=== PATIENT | female | born 1950 | race Caucasian/White ===

== ENCOUNTER 2018-01-24 20:31 | Emergency (ER) | payer MEDICARE ==
[~2018-01-24] VITALS: Ht 160 cm; Wt 74.8 kg
[~2018-01-24 20:31] MED LIST: ASPI325 PO; AZELASTINE HCL6 ML; Anaspaz0.125 MG PO; B-123000 MCG SL; BACL10 PO; CALCAVITDA PO; CENTRUM SILVER1 EAC3 PO; DULO60 PO; FISH1000 PO; HYDACE10B PO; LEVSOD50 PO; METO50 PO; Norco 7.5-3251 EACH PO; Omeprazole20 M1 PO; SERT50 PO; SUMA25 PO; Tambocor100 MG PO; XARELTO20 MG PO; ZYRTEC10 M2 PO; [UNRECOGNIZED DRUG - MIXTURE]
[2018-01-24] MEDS ORDERED: BACL10 PO (22:07)
[2018-01-24] MEDS ORDERED: AMIT25 PO (22:07)
[2018-01-24] MEDS ORDERED: DICL75ER PO (22:08)
[2018-01-24] MEDS ORDERED: CETI5 PO (22:08)
[2018-01-24] MEDS ORDERED: OXYC5 PO (22:09)
[2018-01-24] MEDS ORDERED: WARF5 PO (22:10)
== END 2018-01-24 23:00 | disposition home or self-care (01) ==
LOC: ER 20:31
DX: S61.411A Laceration without foreign body of right hand, initial encounter (principal); W11.XXXA Fall on and from ladder, initial encounter; Z88.1 Allergy status to other antibiotic agents; Z88.8 Allergy status to other drugs, medicaments and biological substances; Z88.0 Allergy status to penicillin; Z79.899 Other long term (current) drug therapy; Z79.01 Long term (current) use of anticoagulants; I48.91 Unspecified atrial fibrillation; Z87.891 Personal history of nicotine dependence
CPT/HCPCS: 90471; 90714; 99282

== ENCOUNTER → 2019-03-06 | Outpatient (CLI) | payer MEDICARE ==
[~2019-03-06] MED LIST changes: +AMIT25 PO; +CALCIUM PO; +CETI5 PO; +DICL75ER PO; +LOSARTAN-HCTZ1 EACH PO; +OXYC5 PO; +WARF5 PO
== END | disposition home or self-care (01) ==
LOC: LAB SHORT 18:04 → LAB EV 18:04
DX: I48.91 Unspecified atrial fibrillation (principal); I48.92 Unspecified atrial flutter
CPT/HCPCS: 36416; 85610

== ENCOUNTER 2020-05-17 10:47 | Day surgery (SDC) | payer MEDICARE ==
[~2020-05-17] VITALS: Ht 157.5 cm; Wt 88.0 kg
[~2020-05-17 10:47] MED LIST changes: -B-123000 MCG SL; +[UNRECOGNIZED DRUG - CODE] SL
[2020-05-17] MEDS ORDERED: Bumetanide0.5 MG PO (12:00)
--- NOTE | 2020-05-17 15:39 | NUR ---
PT TO RECOVERY ROOM POST PACER CHANGE OUT, EATING LUNCH NOW, SITE STABLE W DRESSING INTACT, VSS,
--- NOTE | 2020-05-17 16:04 | NUR ---
PT BACK TO RECOVERY ROOM AT 1500 POST PACER CHANGE OUT, AT LUNCH, AMB TO BTR OK, DRESSED AND CALLING SON FOR DIETETIC TECHNICIAN IN ABOUT 20 MIN.
--- NOTE | 2020-05-17 16:18 | NUR ---
PT DRESSED SELF WITHOUT ANY ISSUES, SITE UNCHANGED; IV REMOVED-CANNULA INTACT. PT RECEIVED DISCHARGE INSTRUCTIONS, MED LIST AND AFTER CARE INSTRUCTIONS; VERBALIZED GOOD UNDERSTANDING. PT LEFT FACILITY VIA W/C, CONDITIION STABLE.
== END 2020-05-17 16:18 | disposition home or self-care (01) ==
LOC: MHTC 10:47
DX: Z45.010 Encounter for checking and testing of cardiac pacemaker pulse generator [battery] (principal); I44.2 Atrioventricular block, complete; I12.9 Hypertensive chronic kidney disease with stage 1 through stage 4 chronic kidney disease, or unspecified chronic kidney disease; N18.9 Chronic kidney disease, unspecified; E78.5 Hyperlipidemia, unspecified; E03.9 Hypothyroidism, unspecified; Z87.891 Personal history of nicotine dependence; Z79.01 Long term (current) use of anticoagulants; Z79.899 Other long term (current) drug therapy; Z88.0 Allergy status to penicillin; Z88.1 Allergy status to other antibiotic agents; Z88.2 Allergy status to sulfonamides; Z98.84 Bariatric surgery status
CPT/HCPCS: 33222; 33228; 99152; 99153; C1785; J1644; J2250; J3010; J3370; J7040; J7042

== ENCOUNTER 2020-09-06 14:11 | Emergency (ER) | payer MEDICARE, SELFPAY ==
[~2020-09-06] VITALS: Ht 157.5 cm; Wt 86.2 kg
[~2020-09-06 14:11] MED LIST changes: +Bumetanide0.5 MG PO
== END 2020-09-06 16:26 | disposition home or self-care (01) ==
LOC: ER 14:11
DX: G56.22 Lesion of ulnar nerve, left upper limb (principal); I48.91 Unspecified atrial fibrillation; Z87.891 Personal history of nicotine dependence
CPT/HCPCS: 96374; 99284-25

== ENCOUNTER → 2020-12-28 | Outpatient (CLI) | payer MEDICARE, SELFPAY ==
[~2020-12-28] MED LIST changes: +ASCO500 PO; +FLUT.05NI; +HYOS.125 SL; +Percocet 5-3251 EACH PO
== END | disposition home or self-care (01) ==
LOC: LAB 09:19 → LAB SHORT 09:19
DX: D48.7 Neoplasm of uncertain behavior of other specified sites (principal)
CPT/HCPCS: 88305

== ENCOUNTER 2021-01-09 19:14 | Emergency (ER) | payer MEDICARE, SELFPAY ==
[~2021-01-09] VITALS: Ht 160 cm; Wt 80.3 kg
[~2021-01-09 19:14] MED LIST changes: -ASCO500 PO; -FLUT.05NI; -HYOS.125 SL; -Percocet 5-3251 EACH PO
[2021-01-09] MEDS ORDERED: ASCO500 PO (20:31)
[2021-01-09] MEDS ORDERED: CETI5 PO (20:36)
[2021-01-09] MEDS ORDERED: FLUT.05NI (20:37)
[2021-01-09] MEDS ORDERED: HYOS.125 SL (20:38)
[2021-01-09] MEDS ORDERED: Percocet 5-3251 EACH PO (20:38)
== END 2021-01-09 20:40 | disposition home or self-care (01) ==
LOC: ER 19:14
DX: M25.512 Pain in left shoulder (principal); Z87.891 Personal history of nicotine dependence; Z79.899 Other long term (current) drug therapy; Z88.1 Allergy status to other antibiotic agents; Z88.0 Allergy status to penicillin; Z88.2 Allergy status to sulfonamides; Z79.01 Long term (current) use of anticoagulants
CPT/HCPCS: 73030; 99283-25

== ENCOUNTER 2021-09-13 05:58 | Day surgery (SDC) | payer MEDICARE ==
[~2021-09-13] VITALS: Ht 157.5 cm; Wt 85.6 kg
[~2021-09-13 05:58] MED LIST changes: +ASCO500 PO; +FLUT.05NI; +HYOS.125 SL; +Percocet 5-3251 EACH PO
[2021-09-13] MEDS ORDERED: Norco 5-325 Ta1 EACH PO (06:32)
--- NOTE | 2021-09-13 06:46 | NUR ---
PT ADMITTED TO [facility]. AGREES WITH PLANNED SURGERY. LUNG SOUNDS CLEAR.
[2021-09-13] MEDS ORDERED: Percocet 5-3251 EACH PO (12:03)
--- NOTE | 2021-09-13 13:41 | NUR ---
DISCHARGE SUMMARY PT A&OX4, VSS, PAIN MANAGED ON 5 MG OXY, TADEO PO, VOIDING, AMBULATING SBA FOR SAFETY-PT INDEPENDENT WITH FWW IN ROOM/HALLWAY, SAT UP TO CHAIR FOR LUNCH. LEFT FLOOR VIA WC WITH RN TO GO HOME WITH SON WITH ALL PERSONAL POSSESSIONS INCLUDING DC PACKET. DC INSTRUCTIONS PROVIDED, PT REP UNDERSTANDING THOSE INSTRUCTIONS INCLUDING FU APPT, THERAPY APPTS, PAIN MEDS. IV DC'D.
== END 2021-09-13 13:37 | disposition home or self-care (01) ==
LOC: ORSCMMR 05:58 → SURS 09:31 → ORSCMMR 13:37 → ORD 09-16 07:30
PROVIDERS: Orthopaedic Surgery
PROC: 0QRF0JZ Replacement of Left Patella with Synthetic Substitute, Open Approach (ICD-10-PCS; principal; 2021-09-13 07:30)
DX: M17.12 Unilateral primary osteoarthritis, left knee (principal); I10 Essential (primary) hypertension; N18.9 Chronic kidney disease, unspecified; Z79.899 Other long term (current) drug therapy; E66.9 Obesity, unspecified; Z68.34 Body mass index [BMI] 34.0-34.9, adult
CPT/HCPCS: 73560-LT; A9270; J0171; J0690; J0735; J1100; J1885; J2250; J2370; J2405; J2704; J2795; J3010; J7030; J7120

== ENCOUNTER 2021-10-11 15:30 | Observation (INO) | payer OTHER, MEDICARE ==
[~2021-10-11] VITALS: Ht 157.5 cm; Wt 83.9 kg
[~2021-10-11 15:30] MED LIST changes: +Norco 5-325 Ta1 EACH PO
[2021-10-11 18:34] LABS: BASOPHILS ABSOLUTE AUTO 0.09 K/mm3 (0.00-0.23); BASOPHILS PERCENT AUTO 2 % (0-2); EOSINOPHILS ABSOLUTE AUTO 0.52 K/mm3 (0.00-0.68); EOSINOPHILS PERCENT AUTO 9 % (0-6); Hematocrit 34.6 % (33.0-51.0); Hemoglobin 11.8 g/dL (11.5-16.0); IMMATURE GRAN ABSOLUTE AUTO 0.01 K/mm3 (0.00-0.10); IMMATURE GRAN PERCENT AUTO 0 % (0-1); LYMPHOCYTES PERCENT AUTO 23 % (21-46); MONOCYTES ABSOLUTE AUTO 0.45 K/mm3 (0.16-1.47); MONOCYTES PERCENT AUTO 8 % (4-13); Mean Corpuscular HGB 32.2 pg (26.0-34.0); Mean Corpuscular HGB Conc 34.1 g/dL (31.5-36.5); Mean Corpuscular Volume 95 fL (80-100); Mean Platelet Volume 9.9 fL (9.1-12.4); NEUTROPHILS ABSOLUTE AUTO 3.25 K/mm3 (1.96-9.15); NEUTROPHILS PERCENT AUTO 58 % (41-73); Platelet Count 227 K/mm3 (150-400); RDW Coefficient Variation 13.7 % (11.7-14.2); RDW Standard Deviation 47.7 fL (35.1-46.3); Red Blood Cell Count 3.66 M/mm3 (3.80-5.20); White Blood Cell Count 5.62 K/mm3 (4.00-11.30)
[2021-10-11 18:57] LABS: Albumin, Blood 3.9 g/dL (3.4-5.0); Albumin/Globulin Ratio 1.4 (0.8-1.8); Bun/Creatinine Ratio 21.1 (12.0-20.0); Calcium, Blood 8.7 mg/dL (8.5-10.1); Creatinine, Blood 0.95 mg/dL (0.40-1.00); Globulin, Blood 2.7 g/dL (2.2-4.0); Potassium, Blood 4.8 mmol/L (3.5-5.5); Total Protein, Blood 6.6 g/dL (6.4-8.2)
[2021-10-12 05:02] LABS: BASOPHILS ABSOLUTE AUTO 0.03 K/mm3 (0.00-0.23); BASOPHILS PERCENT AUTO 1 % (0-2); EOSINOPHILS ABSOLUTE AUTO 0.01 K/mm3 (0.00-0.68); EOSINOPHILS PERCENT AUTO 0 % (0-6); Hematocrit 34.5 % (33.0-51.0); Hemoglobin 11.1 g/dL (11.5-16.0); IMMATURE GRAN ABSOLUTE AUTO 0.02 K/mm3 (0.00-0.10); IMMATURE GRAN PERCENT AUTO 0 % (0-1); LYMPHOCYTES PERCENT AUTO 9 % (21-46); MONOCYTES PERCENT AUTO 2 % (4-13); Mean Corpuscular HGB Conc 32.2 g/dL (31.5-36.5); Mean Corpuscular Volume 96 fL (80-100); Mean Platelet Volume 9.6 fL (9.1-12.4); NEUTROPHILS PERCENT AUTO 88 % (41-73); Platelet Count 204 K/mm3 (150-400); RDW Coefficient Variation 13.6 % (11.7-14.2); RDW Standard Deviation 49.1 fL (35.1-46.3); Red Blood Cell Count 3.58 M/mm3 (3.80-5.20); White Blood Cell Count 5.36 K/mm3 (4.00-11.30)
[2021-10-12 05:14] LABS: International Normalized Ratio 2.39; Prothrombin Time Results 23.7 Sec (9.7-11.5)
[2021-10-12 05:33] LABS: Alanine Aminotransfer (ALT/SGP 28 U/L (12-78); Albumin, Blood 3.5 g/dL (3.4-5.0); Albumin/Globulin Ratio 1.3 (0.8-1.8); Alk Phos 50 U/L (50-136); Anion Gap 7 mmol/L (6-16); Aspartate Aminotrans (AST/SGOT 25 U/L (12-37); Bilirubin, Total 0.4 mg/dL (0.1-1.0); Blood Urea Nitrogen 20 mg/dL (8-24); Bun/Creatinine Ratio 22.6 (12.0-20.0); CO2, Blood 26 mmol/L (21-32); Calcium, Blood 8.4 mg/dL (8.5-10.1); Chloride, Blood 106 mmol/L (98-108); Creatinine, Blood 0.89 mg/dL (0.40-1.00); Globulin, Blood 2.6 g/dL (2.2-4.0); Glomerular Filtration Rate >60 (60-); Glucose, Blood 157 mg/dL (70-99); Potassium, Blood 4.8 mmol/L (3.5-5.5); Sodium, Blood 139 mmol/L (136-145); Total Protein, Blood 6.1 g/dL (6.4-8.2)
--- NOTE | 2021-10-12 05:43 | NUR ---
ALERT AND ORIENTED X'S 4. DRESSING TO LLE C/D/I, IMMOBILZER IN PLACE. ABLE TO WIGGLE TOES, DENIES NUMBNESS/TINGLING. MEDICATED FOR PAIN MANAGEMENT THROUGH NIGHT DUE TO LLE PAIN, EFFECTIVE RELIEF. COOL THERAPY APPLIED. 2 ASSIST TO BSC, VOIDING WITHOUT DIFFICULTY. TOLERATING REGULARY DIET WELL. SAFETY MAINTAINED, CALL HURTADO IN REACH
--- NOTE | 2021-10-12 11:44 | NUR ---
Pt. was awake and in bad. Pt. welcomed my visit. Pt. is pleasant and we establish rapport quickly. Facilitate a life review. Pt. is a little unsettled about infection concerns. Through theraputic listening pt. displayed evidence of renewed jase and courgage as she addresses discharge and recovery. Prayed with Pt. Pt. verbalized gratitude for prayer and the spiritual care visit. Pt. anticipates discharge later today.
[2021-10-12] MEDS ORDERED: CLIN150 PO (12:21)
--- NOTE | 2021-10-12 12:40 | NUR ---
DISCHARGE NOTE: PATIENT WAS EDUCATED ON DISCHARGE INSTRUCTIONS. PATIENT VERBALIZED UNDERSTANDING OF INSTRUCTIONS. HARD PERSCRIPTION IS WITH PATIENT AND ABX WAS FAXED TO HER PREFERRED PHARMACY. IV WAS TAKEN OUT AND WNL. LEFT KNEE HAS AN AQUACEL THAT IS C/D/I. DENIES NUMBNESS AND TINGLING. SHE CAN MOVE FINGERS AND TOES. PATIENT IS CURRENTLY GETTING DRESSED AND GATHERING HER PERSONAL ITEMS IN THE ROOM. HER DAUGHTER WILL BE HERE SHORTLY TO PICK HER UP AND TAKE HER HOME.
--- NOTE | 2021-10-12 13:47 | NUR ---
Per chart review with Dr. Erwin, patient appropriate for discharge home. Patient's daughter provided discharge transportation. Patient instructed PORTER will follow-up and schedule office visit with PCP within 7 days. Patient independent in her home, denies barriers to discharge. No needs anticipated.
== END 2021-10-12 13:00 | disposition home or self-care (01) ==
LOC: ER 15:30 → SURS 15:31
PROVIDERS: Orthopaedic Surgery; Student in an Organized Health Care Education/Training Program; ADMIT Internal Medicine
PROC: 0JQP0ZZ Repair Left Lower Leg Subcutaneous Tissue and Fascia, Open Approach (ICD-10-PCS; principal; 2021-10-11 19:45)
DX: T81.31XA Disruption of external operation (surgical) wound, not elsewhere classified, initial encounter (principal); I48.91 Unspecified atrial fibrillation; I10 Essential (primary) hypertension; E03.9 Hypothyroidism, unspecified; Z79.01 Long term (current) use of anticoagulants; Z88.1 Allergy status to other antibiotic agents; Z88.0 Allergy status to penicillin; Z88.2 Allergy status to sulfonamides; Z87.891 Personal history of nicotine dependence; Z96.652 Presence of left artificial knee joint; W01.0XXA Fall on same level from slipping, tripping and stumbling without subsequent striking against object, initial encounter; Z23 Encounter for immunization
CPT/HCPCS: 36415; 73562-LT; 80053; 85025; 85610; 87071; 87075; 87205; 90471; 90714; 96374; 96375; 96376; 99284-25; A9270; G0378; J0690; J1100; J1170; J2405; J2704; J3010; J7030

== ENCOUNTER → 2022-05-01 | Outpatient (CLI) | payer MEDICARE ==
[~2022-05-01] MED LIST changes: +CLIN150 PO
[2022-05-01 14:05] LABS: Stool Occult Bld Immuno 1 Negative (NEGATIVE)
== END | disposition home or self-care (01) ==
LOC: LAB SHORT 09:30 → LAB 09:30
PROVIDERS: Physician Assistant
DX: D50.8 Other iron deficiency anemias (principal)
CPT/HCPCS: G0328

== ENCOUNTER → 2024-02-05 | Outpatient (CLI) | payer MEDICARE | END | disposition home or self-care (01) | LOC: LAB 10:00 → LAB SHORT 10:00 | DX: R10.819 Abdominal tenderness, unspecified site (principal) | CPT/HCPCS: 87077; 87086; 87186 ==

== ENCOUNTER 2025-04-02 08:21 | Inpatient (IN) | payer MEDICARE ==
[~2025-04-02] VITALS: Ht 157.5 cm; Wt 74.4 kg
[2025-04-02 09:01] LABS: BASOPHILS ABSOLUTE AUTO 0.04 K/mm3 (0.00-0.23); BASOPHILS PERCENT AUTO 0 % (0-2); EOSINOPHILS ABSOLUTE AUTO 0.03 K/mm3 (0.00-0.68); EOSINOPHILS PERCENT AUTO 0 % (0-6); Hematocrit 31.1 % (33.0-51.0); Hemoglobin 10.4 g/dL (11.5-16.0); IMMATURE GRAN ABSOLUTE AUTO 0.04 K/mm3 (0.00-0.10); IMMATURE GRAN PERCENT AUTO 0 % (0-1); LYMPHOCYTES ABSOLUTE AUTO 0.72 K/mm3 (0.84-5.20); LYMPHOCYTES PERCENT AUTO 7 % (21-46); MONOCYTES ABSOLUTE AUTO 0.68 K/mm3 (0.16-1.47); MONOCYTES PERCENT AUTO 6 % (4-13); Mean Corpuscular HGB Conc 33.4 g/dL (31.5-36.5); Mean Corpuscular Volume 95 fL (80-100); NEUTROPHILS ABSOLUTE AUTO 9.13 K/mm3 (1.96-9.15); NEUTROPHILS PERCENT AUTO 86 % (41-73); NRBC ABSOLUTE 0.00 K/mm3 (0.00-0.02); NRBC Auto 0.0 /100 WBC (0.0-0.2); Platelet Count 237 K/mm3 (150-400); RDW Coefficient Variation 13.4 % (11.7-14.2); RDW Standard Deviation 46.6 fL (35.1-46.3)
[2025-04-02 09:20] LABS: Prothrombin Time Results 63.1 Sec (9.7-11.5)
[2025-04-02 10:20] LABS: Magnesium, Blood 2.5 mg/dL (1.6-2.4); Thyroid Stimulating Hormone 1.420 uIU/mL (0.360-4.800)
[2025-04-02 10:42] LABS: Source, Urine Clean Catch
[2025-04-02 10:46] LABS: Color, Urine Yellow (P-Yellow); Glucose Qualitative, Urine Neg (Neg); Ketones, Urine Neg (Neg); Leukocyte Esterase, Urine Neg (Neg); Protein, Urine 1+ (Neg); Specific Gravity, Urine 1.020 (1.003-1.022); Urobilinogen, Urine NORM (Normal)
[2025-04-02 10:49] LABS: Bilirubin, Urine 1+ (Neg)
[2025-04-02 10:51] LABS: Anion Gap 11 mmol/L (3-11); Blood Urea Nitrogen 101 mg/dL (8-24); CO2, Blood 22 mmol/L (21-32); Calcium, Blood 8.7 mg/dL (8.5-10.1); Chloride, Blood 104 mmol/L (98-108); Creatinine, Blood 3.79 mg/dL (0.40-1.00); Glucose, Blood 123 mg/dL (70-99); Potassium, Blood 4.5 mmol/L (3.5-5.5); Sodium, Blood 132 mmol/L (136-145)
[2025-04-02] MEDS ORDERED: NS 1,000 ML IV SCH ×2 (11:05→15:40)
[2025-04-02 11:21] LABS: Alanine Aminotransfer (ALT/SGP 39.0 U/L (12-78); Albumin, Blood 3.8 g/dL (3.4-5.0); Albumin/Globulin Ratio 1.2 (0.8-1.8); Aspartate Aminotrans (AST/SGOT 55.0 U/L (12-37); Bilirubin, Direct 0.2 mg/dL (0.0-0.3); Bilirubin, Indirect 0.3 mg/dL (0.1-0.7); Bilirubin, Total 0.5 mg/dL (0.1-1.0); Globulin, Blood 3.1 g/dL (2.2-4.0); Total Protein, Blood 6.9 g/dL (6.4-8.2)
[2025-04-02] MEDS ORDERED: Prinivil10 MG PO (12:03)
[2025-04-02] MEDS ORDERED: PRAV20 PO (12:04)
[2025-04-02] MEDS ORDERED: METHYL B12-MET1 EACH PO (12:10)
[2025-04-02] MEDS ORDERED: MULVITA PO (12:10)
[2025-04-02] MEDS ORDERED: IRON18 M1 (12:10)
[2025-04-02 15:13] VITALS: BP 110/83
[2025-04-02] MEDS ORDERED: Fluticasone 0.05% Nasal Spray PRN (15:40)
[2025-04-02 17:28] LABS: Anion Gap 11.0 mmol/L (3-11); Blood Urea Nitrogen 94.0 mg/dL (8-24); CO2, Blood 20.0 mmol/L (21-32); Calcium, Blood 8.1 mg/dL (8.5-10.1); Chloride, Blood 107.0 mmol/L (98-108); Creatinine, Blood 2.88 mg/dL (0.40-1.00); Glucose, Blood 140.0 mg/dL (70-99); Potassium, Blood 4.1 mmol/L (3.5-5.5); Sodium, Blood 134.0 mmol/L (136-145)
[2025-04-02 19:37] VITALS: BP 99/49
[2025-04-02 23:19] VITALS: BP 98/78
[2025-04-03 02:44] VITALS: BP 145/57
[2025-04-03 04:50] LABS: BASOPHILS ABSOLUTE AUTO 0.05 K/mm3 (0.00-0.23); BASOPHILS PERCENT AUTO 1 % (0-2); EOSINOPHILS ABSOLUTE AUTO 0.09 K/mm3 (0.00-0.68); EOSINOPHILS PERCENT AUTO 1 % (0-6); Hematocrit 30.8 % (33.0-51.0); Hemoglobin 10.1 g/dL (11.5-16.0); IMMATURE GRAN ABSOLUTE AUTO 0.02 K/mm3 (0.00-0.10); IMMATURE GRAN PERCENT AUTO 0 % (0-1); LYMPHOCYTES ABSOLUTE AUTO 0.96 K/mm3 (0.84-5.20); LYMPHOCYTES PERCENT AUTO 13 % (21-46); MONOCYTES ABSOLUTE AUTO 0.80 K/mm3 (0.16-1.47); MONOCYTES PERCENT AUTO 11 % (4-13); Mean Corpuscular HGB Conc 32.8 g/dL (31.5-36.5); Mean Corpuscular Volume 96 fL (80-100); NEUTROPHILS ABSOLUTE AUTO 5.58 K/mm3 (1.96-9.15); NEUTROPHILS PERCENT AUTO 74 % (41-73); NRBC ABSOLUTE 0.00 K/mm3 (0.00-0.02); NRBC Auto 0.0 /100 WBC (0.0-0.2); Platelet Count 207 K/mm3 (150-400); RDW Coefficient Variation 13.4 % (11.7-14.2); RDW Standard Deviation 46.6 fL (35.1-46.3)
--- NOTE | 2025-04-03 05:15 | NUR ---
SHIFT SUMMARY NOC. PT ADMIT FOR MERCY AND RECURENT FALLS. A/O X4, PT MEDICATED FOR RIGHT KNEE PAIN WITH REPORTED RELIEF OF SX. PT MEDICATED FOR NASAL CONGESTION WITH FLONASE. PT SLEPT INTERMITTENTLY WITH CPAP IN PLACE. PT HAD A 1X DESAT EPISODE TO 85%, RT SET UP BLEED IN O2 FOR CPAP. CONT BIOX IN PLACE. TELEMETRY INTACT WITH NO REPORTED EVENTS. BED ALARM SET FOR SAFETY, CALL LIGHT IN REACH.
[2025-04-03 05:16] LABS: Alanine Aminotransfer (ALT/SGP 40.0 U/L (12-78); Albumin, Blood 3.6 g/dL (3.4-5.0); Albumin/Globulin Ratio 1.2 (0.8-1.8); Anion Gap 14.0 mmol/L (3-11); Aspartate Aminotrans (AST/SGOT 63.0 U/L (12-37); Bilirubin, Total 0.6 mg/dL (0.1-1.0); Blood Urea Nitrogen 86.0 mg/dL (8-24); CO2, Blood 18.0 mmol/L (21-32); Calcium, Blood 8.1 mg/dL (8.5-10.1); Chloride, Blood 110.0 mmol/L (98-108); Creatinine, Blood 2.2 mg/dL (0.40-1.00); Globulin, Blood 3.1 g/dL (2.2-4.0); Glucose, Blood 120.0 mg/dL (70-99); Potassium, Blood 3.9 mmol/L (3.5-5.5); Sodium, Blood 138.0 mmol/L (136-145); Total Protein, Blood 6.7 g/dL (6.4-8.2)
[2025-04-03 07:12] VITALS: BP 127/80
[2025-04-03] MEDS ORDERED: Misc. Tablet PO SCH (09:00)
[2025-04-03] MEDS ORDERED: DULoxetine HCL 60 MG Capsule DR PO SCH (09:00)
[2025-04-03] MEDS ORDERED: Multivitamins 1 Tab PO SCH (09:00)
[2025-04-03 09:31] LABS: Prothrombin Time Results 73.3 Sec (9.7-11.5)
--- NOTE | 2025-04-03 10:07 | NUR ---
PT VOIDED 475ML, EMPTIED SLOWLY. POST VOID BLADDER SCAN SHOWED 15ML RESIDUAL. DR. WILSON NOTIFIED.
[2025-04-03 14:06] VITALS: BP 119/68
--- NOTE | 2025-04-03 17:49 | NUR ---
SUMMARY: NO ACUTE CHANGE TODAY.VSS, A/O, FAMILY MENTIONED TODAY THAT PT SEEMS MORE FORGETFUL, BED ALARM SET AND PT USES CALL LIGHT, NOT IMPULSIVE. NO CHANGE IN TELE. PT IS VOIDING. TREMORS APPEAR BETTER TONIGHT. NO CONCERNS AT THIS TIME.
[2025-04-03 19:21] VITALS: BP 147/54
[2025-04-04] VITALS (7 sets, daily range): BP systolic 135–179; BP diastolic 47–72
--- NOTE | 2025-04-04 04:43 | NUR ---
SHIFT SUMMARY PT HAS BEEN AWAKE MOST OF THE NIGHT TALKING TO HERSELF. PT MOOD IS HAPPY, TALKATIVE WITH STAFF. PT FORGETFUL, KNOWS SHE'S IN THE HOSPITAL. DID NOT ATTEMPT TO GET OOB WITHOUT ASSISTANCE. PT MAKES STATEMENTS THAT DON'T MAKE SENSE, FLIGHT OF IDEAS. VITALS STABLE. PAIN MANAGED PER EMAR. PT UP AND AMBULATING TO BEDSIDE COMMODE WITH 1-2 ASSIST. PLAN OF CARE REMAINS UNCHANGED. BED IN LOWEST POSITION, CALL LIGHT WITHIN REACH.
[2025-04-04 05:00] LABS: BASOPHILS ABSOLUTE AUTO 0.05 K/mm3 (0.00-0.23); BASOPHILS PERCENT AUTO 0 % (0-2); EOSINOPHILS ABSOLUTE AUTO 0.02 K/mm3 (0.00-0.68); EOSINOPHILS PERCENT AUTO 0 % (0-6); Hematocrit 31.2 % (33.0-51.0); Hemoglobin 10.3 g/dL (11.5-16.0); IMMATURE GRAN ABSOLUTE AUTO 0.05 K/mm3 (0.00-0.10); IMMATURE GRAN PERCENT AUTO 0 % (0-1); LYMPHOCYTES ABSOLUTE AUTO 0.84 K/mm3 (0.84-5.20); LYMPHOCYTES PERCENT AUTO 7 % (21-46); MONOCYTES ABSOLUTE AUTO 0.76 K/mm3 (0.16-1.47); MONOCYTES PERCENT AUTO 6 % (4-13); Mean Corpuscular HGB Conc 33.0 g/dL (31.5-36.5); Mean Corpuscular Volume 97 fL (80-100); NEUTROPHILS ABSOLUTE AUTO 10.07 K/mm3 (1.96-9.15); NEUTROPHILS PERCENT AUTO 86 % (41-73); NRBC ABSOLUTE 0.00 K/mm3 (0.00-0.02); NRBC Auto 0.0 /100 WBC (0.0-0.2); Platelet Count 215 K/mm3 (150-400); RDW Coefficient Variation 13.9 % (11.7-14.2); RDW Standard Deviation 49.1 fL (35.1-46.3)
[2025-04-04 05:21] LABS: Prothrombin Time Results 67.1 Sec (9.7-11.5)
[2025-04-04 05:27] LABS: Alanine Aminotransfer (ALT/SGP 37.0 U/L (12-78); Albumin, Blood 3.4 g/dL (3.4-5.0); Albumin/Globulin Ratio 1.1 (0.8-1.8); Anion Gap 12.0 mmol/L (3-11); Aspartate Aminotrans (AST/SGOT 53.0 U/L (12-37); Bilirubin, Total 0.8 mg/dL (0.1-1.0); Blood Urea Nitrogen 54.0 mg/dL (8-24); CO2, Blood 17.0 mmol/L (21-32); Calcium, Blood 8.5 mg/dL (8.5-10.1); Chloride, Blood 115.0 mmol/L (98-108); Creatinine, Blood 1.17 mg/dL (0.40-1.00); Globulin, Blood 3.2 g/dL (2.2-4.0); Glucose, Blood 138.0 mg/dL (70-99); Potassium, Blood 4.2 mmol/L (3.5-5.5); Sodium, Blood 140.0 mmol/L (136-145); Total Protein, Blood 6.6 g/dL (6.4-8.2)
[2025-04-04] MEDS ORDERED: HydrALAZINE HCl 20 MG / ML 1ML Vial IV PRN (12:15)
--- NOTE | 2025-04-04 16:28 | NUR ---
PROVIDER CALLED DR CRUZ REGARDING CONTINUED CONFUSION AND THE PATIENTS FAMILIES CONCERNS. REVIEWED LABS. REVIEWED MEDICATIONS. ATTEMPTED TO PUT IN MRI ORDER - PT HAS PACEMAKER AND CAN'T PER HOSPITAL POLICY DESPITE PROVIDING PACEMAKER CARD. PROVIDER BELIEVES THE CONFUSION IS STILL METABOLIC IN NATURE AND WILL RESOLVE THE KIDNEY INJURY RESOLVES. DISCUSSED IN-HOSPITAL INSOMNIA, ORDERS RECEIVED PT HAS NOT BEEN RESTING AND COULD POSSIBLE BE CONTRIBUTING TO CONFUSION WELL. FAMILY UPDATED.
--- NOTE | 2025-04-04 17:02 | NUR ---
SUMMARY SEE PROVIDER NOTE REGARDING PT'S MENTATION. PT'S VSS EXCEPT FOR HTN, TREATED WITH HOME MEDS, ADDED NORVASC AND PRN HYDRALZING, WNL CURRENTLY. REMAINS VPACED, 60'S HR. FAMILY BROUGHT HOME CPAP IN PT STATES THE HOSPITAL ONE DIDNT WORK FOR HER WELL. SPO2 >94%. DRESSINGS REPALCED TO BILAT ARMS, WOUNDS CLEANSED. PT TOLERATING FOOD BUT HAS POOR APETITE. FLUIDS INFUSING. HAS BEEN OOB TO CHAIR AND BACK MULTIPLE TIMES THIS SHIFT - TOELRATED WELL, JUST SLOWLY. PT WAS TO HAVE HEAD MRI BUT CAN'T DUE TO PACEMAKER - PROVIDER AWARE. OTHERWISE, PT RESTING IN BED. AMS CONTINUES WITH FLIGHT OF IDEAS AT TIMES AND CONFUSION MIXED WITH CONCRETE THOUGHT/REASONING. BED ALARM ON.
[2025-04-05 00:40] VITALS: BP 170/50
--- NOTE | 2025-04-05 01:09 | NUR ---
PT HAD SEROQUEL PER NEW ORDER AND CONTINUES DISRUPTIVE,YELLS OUT FOR NOTHING SPECIFIC.BABBLING SPEAKING,UNABLE TO MAINTAIN SENSICLE CONVERSATION,FLIGHT OF IDEAS,TRYING TO CLIMB OUT OF BED SETTING OFF BED ALARM.DIFF TO TALK DOWN INTO PUTTING LEGS BACK IN BED,YELLS "NO' PTS RLE SOLIDLY BRUISED WITH CHICKEN EGG SIZED LUMP FRONTAL L LATERAL R KNEE WITH MILD WARMTH AND SPONGING TIGHTNESS NOTED.PT ON ADMIT NOTED TO HAVE CRITICALLY HI INR-CURRENT DECLINE.NOTED DURING DAY,DR HOPING TO DO HEAD MRI.HOWEVER, UNABLE TO DO MRI DUE TO PTS PACER,LAST HEAD CT WAS DONE ON ,PT HAS MILD BUMP IN TEMP AND WBC HAS ALSO BUMPED. I SPOKE WITH DR SANCHES AGAIN AND DISCUSSED ABOVE. ADVISED ME TO HAVE AM LABS DRAWN EARLY AND ADD LACTIC,THEN WILL REVIEW NEEDS FURTHER.
--- NOTE | 2025-04-05 01:11 | NUR ---
INCREASED CONFUSION PT CONFUSION IS CONTINUING TO INCREASE, PT UNABLE TO ANSWER QUESTIONS APPROPRIATELY, SPEECH IS NONSENSICAL AND PT JUMPS FROM VARIOUS TOPICS. FLIGHT OF IDEAS AND PRESSURED SPEECH. PT DOES KNOW SHE IS IN THE HOSPITAL AND IS ABLE TO TELL US THE NAME OF HOSPITAL. PT HAS HAD VERY LITTLE SLEEP, AND LOW APPETITE. MELATONIN GIVEN AT HS HAS NOT BEEN EFFECTIVE. PT HAS BECOME MORE AGITATED, PULLING AT HER LINES, REMOVING HER CPAP, AND SWINIGING LEGS OFF OF THE BED. PT YELLING OUT, SAYING "AHHHH" IN A SING SONG LIKE MANNER. PRODUCTION OPERATOR MADE AWARE. PRODUCTION OPERATOR SPOKE WITH DR. SANCHES ADN NOTIFIED HIM OF INCREASED AGITATION, AND CONFUSION. NOTIFIED HIM OF PT CURRENT LABS/RENAL FUCTION. SEROQUELL ORDERED. IT IS NOTED WITH LABS THAT WBC IS ELEVATED SLIGHTLY, WHEN IT HAD NOT BEEN PREVIOUSLY, PT ALSO HAS A SLIGHT TEMP. PT RIGHT KNEE IS STILL SWOLLEN FROM HER FALL PRIOR TO ADMISSION, WITH A GOOSE EGG LIKE BUMP TO LATERAL SIDE OF KNEE. DR. SANCHES MADE AWARE OF THAT ALSO BY PRODUCTION OPERATOR. LACTIC ORDERED, AND AM LABS WILL NOW BE DONE EARLIER PER MYRON. DR. SANCHES TO EVALUATE RESULTS AND PLACE ADDITIONAL ORDERS IF NECESSARY.
[2025-04-05 02:11] LABS: BASOPHILS ABSOLUTE AUTO 0.04 K/mm3 (0.00-0.23); BASOPHILS PERCENT AUTO 0 % (0-2); EOSINOPHILS ABSOLUTE AUTO 0.01 K/mm3 (0.00-0.68); EOSINOPHILS PERCENT AUTO 0 % (0-6); Hematocrit 28.9 % (33.0-51.0); Hemoglobin 9.5 g/dL (11.5-16.0); IMMATURE GRAN ABSOLUTE AUTO 0.05 K/mm3 (0.00-0.10); IMMATURE GRAN PERCENT AUTO 0 % (0-1); LYMPHOCYTES ABSOLUTE AUTO 0.69 K/mm3 (0.84-5.20); LYMPHOCYTES PERCENT AUTO 6 % (21-46); MONOCYTES ABSOLUTE AUTO 0.61 K/mm3 (0.16-1.47); MONOCYTES PERCENT AUTO 5 % (4-13); Mean Corpuscular HGB Conc 32.9 g/dL (31.5-36.5); Mean Corpuscular Volume 96 fL (80-100); NEUTROPHILS ABSOLUTE AUTO 10.33 K/mm3 (1.96-9.15); NEUTROPHILS PERCENT AUTO 88 % (41-73); NRBC ABSOLUTE 0.05 K/mm3 (0.00-0.02); NRBC Auto 0.4 /100 WBC (0.0-0.2); Platelet Count 192 K/mm3 (150-400); RDW Coefficient Variation 14.0 % (11.7-14.2); RDW Standard Deviation 48.9 fL (35.1-46.3)
[2025-04-05 02:27] LABS: Alanine Aminotransfer (ALT/SGP 31.0 U/L (12-78); Albumin, Blood 3.0 g/dL (3.4-5.0); Albumin/Globulin Ratio 0.9 (0.8-1.8); Anion Gap 10.0 mmol/L (3-11); Aspartate Aminotrans (AST/SGOT 40.0 U/L (12-37); Bilirubin, Total 0.9 mg/dL (0.1-1.0); Blood Urea Nitrogen 39.0 mg/dL (8-24); CO2, Blood 21.0 mmol/L (21-32); Calcium, Blood 8.5 mg/dL (8.5-10.1); Chloride, Blood 113.0 mmol/L (98-108); Creatinine, Blood 1.05 mg/dL (0.40-1.00); Globulin, Blood 3.4 g/dL (2.2-4.0); Glucose, Blood 152.0 mg/dL (70-99); Potassium, Blood 4.5 mmol/L (3.5-5.5); Sodium, Blood 139.0 mmol/L (136-145); Total Protein, Blood 6.4 g/dL (6.4-8.2)
[2025-04-05 04:41] VITALS: BP 152/62
--- NOTE | 2025-04-05 07:12 | NUR ---
SHIFT SUMMARY PT HAS NOT SLEPT THIS SHIFT, DESPITE MEDICATIONS GIVEN. PT RECEIVED SEROQUELL, MELATONIN, AND HOME DOSE OF AMITRIPTYLINE. SEROQUELL DID HELP RELAX PT SOME FOR A FEW HOURS. HOWEVER, PT STILL WAS NOT ABLE TO SLEEP. PT HAS BEEN AWAKE TALKING TO HERSELF IN HER ROOM. WHEN TALKING TO STAFF SPEECH IS NONSENSICAL, AND PT UNABLE TO ANSWER QUESTIONS APPROPRIATELY. PT BECOMING MORE AGITATED THIS AM, ATTEMPTING TO GET OOB. BECOMING MORE PARANOID. ANOTHER BUSBOY ALYSSIA REPORTS THAT PT TOOK A SWING AT HER WHEN SHE WAS HELPING HER BACK TO BED. PT YELLING OUT OCCASIONALLY, PULLING AT HER LINES, REMOVING HER BIOX AND CPAP. PRN ZYPREXA GIVEN. PT CONTINUES TO HAVE RIGHT KNEE SWELLING, WBC ELEVATED AND SLIGHT FEVER. PROVIDER NOTIFIED, LABS WERE ORDERED WHICH WERE UNREMARKABLE. AND NO ADDITIONAL ORDERS GIVEN BY MYRON. IVF INFUSING. BED ALARM IN PLACE. CALL LIGHT WITHIN REACH.
--- NOTE | 2025-04-05 07:32 | NUR ---
AGITATION APPROX 0645 WENT INTO PT RM BECAUSE HER CONT PULSE OX WAS ALARMING, FOUND PT HAD REMOVED PULSE OX OFF FINGER & HAD CPAP CORDS ALL WRAPPED AROUND HER TORSO. ATTEMPTED IN HELPING UNTANGLE. PT STATED "ARE YOU ?" & HAD FISTS CLENCHED. I INFORMED PT I'M NOT & WANTED TO HELP HER. PT STATED "YES YOU ARE, YOU QUEER" & LIGHTLY SWUNG ARM/HAND & HIT THIS NURSE IN THE L SIDE OF ABD. INFORMED PT I WAS DONE HELPING & INFORMED PRIMARY NURSE OF INTERACTION. LAURI Arteaga WAS CALLING OUT FOR HELP STATING PT ATTEMPTING TO GET OOB & WAS TRYING TO HIT & KICK HIM. INFORMED PRIMARY RN SUSANA Aretaga & SHE ASKED THIS RN TO MEDICATE W/IM ZYPREXA THAT WAS ORDERED. ARACELI Peña, MYSELF, LAURI Arteaga & LAURI Bella @BEDSIDE WHILE GIVING IM MED INCASE PT BECAME AGITATED AGAIN.
[2025-04-05 07:58] VITALS: BP 152/63
[2025-04-05 08:39] LABS: Prothrombin Time Results 75.2 Sec (9.7-11.5)
[2025-04-05] MEDS ORDERED: Haloperidol Lactate Inj. 5 MG/ML Injection IV ONE ×2 (09:20→13:35)
[2025-04-05 09:31] LABS: Thyroid Stimulating Hormone 1.82 uIU/mL (0.360-4.800)
[2025-04-05] MEDS ORDERED: CefTRIAXone Sodium 1,000 MG in NS 100 ML IV SCH (10:15)
[2025-04-05 11:52] LABS: Source, Urine Clean Catch
[2025-04-05 12:04] LABS: Bilirubin, Urine Neg (Neg); Color, Urine Yellow (P-Yellow); Glucose Qualitative, Urine Neg (Neg); Ketones, Urine 1+ (Neg); Leukocyte Esterase, Urine 1+ (Neg); Protein, Urine 1+ (Neg); Specific Gravity, Urine 1.015 (1.003-1.022); Urobilinogen, Urine NORM (Normal)
[2025-04-05 12:55] LABS: Red Blood Cells, Urine 0-2 /hpf (0-2)
[2025-04-05 13:01] VITALS: BP 178/62
[2025-04-05 13:45] VITALS: BP 155/88
--- NOTE | 2025-04-05 17:29 | NUR ---
SUMMARY ASSUMED CAR EOF PT @0700. PT AGITATED. AGGRESSIVE AT TIMES. FLIGHT OF IDEAS PRESENT. DR CRUZ TO ROOM WITH FAMILY. PT HITTING AT STAFF. REVIEWED CONCERNS. CXR ORDERED. UA ORDERED - HAD TO STRAIGHT CATH IN ORDER TO OBTAIN SAMPLE DURING PT'S AGITATED STATE. CXR. REPEAT HEAD CT ORDERED. LABS ORDERED. RISPERIDALL ORDERED WELL IV HALDOL. WITH MUCH PROMPTING, PT EVENTUALLY TOOK HER PO MEDS BUT THE RISPERIDALL WAS NOT SUCCESFUL AT CALMING PT SO HALDOL 2.5MG X2 ADMINISTERED IV, END OF SHIFT - PT IS NOW MORE SENSICAL, NOT AGITATED, NOT YELLING OUT, NOT HITTING STAFF, AND ALLOWED THE STRAIGHT CATH TO BE PERFORMED AND WAS ABLE TO SIT STILL ENOUGH FOR HEAD CT. VSS. 1600 VITALS (PER FAMILY REQUEST) MISSED BC PT IS FINALLY SLEEPING AFTER NOT SLEEPING FOR MULTIPLE SHIFTS. VIT K IV ADMINISTERED DUE TO CONTINUED ELEVATED INR. FLUIDS CONTINUE TO INFUSE. HOME CPAP IN ROOM. CONTINUES VPACED PER TELE. R KNEE CONTINUES SWOLLEN BUT PT IS AMBULATING NOW THAT AGITATION HAS CURRENTLY RESOLVED. FAMILY HAS BEEN PRESENT IN ROOM T/O DAY, HELPFUL AT MAINTAINING SAFETY THERE WAS NO STAFF AVAILABLE TO BE SITTERS DESPITE ORDERS BEING PLACED. PT WITH POOR APPETITIE CURRENTLY BUT IS TOLERATING PO INTAKE. BED ALARM ON. BED IN LOW POSITION.
--- NOTE | 2025-04-05 18:35 | NUR ---
REPORT GIVEN TO MEDICAL FLOOR RN. PLAN TO MOVE PT LATER IN NOC SHIFT TO ALLOW PT TO CONTINUE TO OBTAIN REST POST HALDOL DOSING WITH PT'S DELERIUM.
[2025-04-05 19:47] VITALS: BP 173/83
--- NOTE | 2025-04-05 21:36 | NUR ---
PT ON HOME CPAP AND HAD O2 SATS AROUND 80-86%. O2 PULSE OX CHANGED, PT STILL SHOWS LOW O2 SATS. RT CALLED, MELBA VERNON, RT IN ROOM. PT PUT ON 3L OF O2 TO MAINTAIN SATS OVER 90%. PRIMARY NURSE MADE AWARE OF CHANGE IN PT CONDITION. CHARGE NURSE MADE AWARE OF CHANGE IN PT CONDITION. CALL LIGHT IN REACH AND SAFETY PRECAUTIONS IN PLACE.
[2025-04-06 04:17] VITALS: BP 177/78
--- NOTE | 2025-04-06 04:41 | NUR ---
PATIENT ALERT AND ORIENTED X4 DURING SHIFT WITH INTERMITTENT CONFUSION. PATIENT ON CPAP AT NIGHT. NS RUNNING AT 75 ML/H. PATIENT UP TO BS WITH 1 ASSIST AND WALKER. OXYCODONE GIVEN FOR PAIN
[2025-04-06 04:56] VITALS: BP 163/63
[2025-04-06 07:14] VITALS: BP 173/62
[2025-04-06 11:47] LABS: BASOPHILS ABSOLUTE AUTO 0.01 K/mm3 (0.00-0.23); BASOPHILS PERCENT AUTO 0 % (0-2); EOSINOPHILS ABSOLUTE AUTO 0.00 K/mm3 (0.00-0.68); EOSINOPHILS PERCENT AUTO 0 % (0-6); Hematocrit 24.5 % (33.0-51.0); Hemoglobin 8.0 g/dL (11.5-16.0); IMMATURE GRAN ABSOLUTE AUTO 0.08 K/mm3 (0.00-0.10); IMMATURE GRAN PERCENT AUTO 1 % (0-1); LYMPHOCYTES ABSOLUTE AUTO 0.44 K/mm3 (0.84-5.20); LYMPHOCYTES PERCENT AUTO 5 % (21-46); MONOCYTES ABSOLUTE AUTO 0.51 K/mm3 (0.16-1.47); MONOCYTES PERCENT AUTO 5 % (4-13); Mean Corpuscular HGB Conc 32.7 g/dL (31.5-36.5); Mean Corpuscular Volume 95 fL (80-100); NEUTROPHILS ABSOLUTE AUTO 8.53 K/mm3 (1.96-9.15); NEUTROPHILS PERCENT AUTO 89 % (41-73); NRBC ABSOLUTE 0.25 K/mm3 (0.00-0.02); NRBC Auto 2.6 /100 WBC (0.0-0.2); Platelet Count 193 K/mm3 (150-400); RDW Coefficient Variation 14.6 % (11.7-14.2); RDW Standard Deviation 50.1 fL (35.1-46.3)
[2025-04-06 12:01] LABS: Prothrombin Time Results 13.8 Sec (9.7-11.5)
[2025-04-06 12:23] LABS: Alanine Aminotransfer (ALT/SGP 33.0 U/L (12-78); Albumin, Blood 2.9 g/dL (3.4-5.0); Albumin/Globulin Ratio 0.9 (0.8-1.8); Anion Gap 10.0 mmol/L (3-11); Aspartate Aminotrans (AST/SGOT 43.0 U/L (12-37); Bilirubin, Total 1.2 mg/dL (0.1-1.0); Blood Urea Nitrogen 34.0 mg/dL (8-24); CO2, Blood 20.0 mmol/L (21-32); Calcium, Blood 8.4 mg/dL (8.5-10.1); Chloride, Blood 118.0 mmol/L (98-108); Creatinine, Blood 1.08 mg/dL (0.40-1.00); Globulin, Blood 3.4 g/dL (2.2-4.0); Glucose, Blood 157.0 mg/dL (70-99); Potassium, Blood 4.3 mmol/L (3.5-5.5); Sodium, Blood 144.0 mmol/L (136-145); Total Protein, Blood 6.3 g/dL (6.4-8.2)
--- NOTE | 2025-04-06 18:44 | NUR ---
SHIFT SUMMARY PATIENT ALERT AND INTERACTIVE. PATIENT CONTINUES TO BE CONFUSED BUT ABLE TO ANSWER QUESTIONS MORE LATER INTO SHIFT. FAMILY IN AND OUT. FAMILY REPORTS THAT PATIENT DOES NOT TAKE MEDICATIONS REGULARLY AT HOME. PATIENT STATES THAT SHE DOES FORGET AT TIMES. PROVIDED EDUCATION RELATED TO DIET, FLUIDS, AND MEDICATIONS. PATIENT WAS LIVING ALONE PRIOR TO ADMISSION. FAMILY AWARE THAT PATIENT MAY NOT BE ABLE TO RETURN TO LIVING ALONE.
[2025-04-06 20:54] VITALS: BP 180/74
[2025-04-06 23:49] VITALS: BP 152/87
[2025-04-07 02:22] VITALS: BP 179/83
--- NOTE | 2025-04-07 04:08 | NUR ---
NEW CRACKLES AUSCULTATED IN RUL OF PT. PT SOB BUT MAINTAINING O2 SATS ABOVE 88%. PHYSICIAN CONTACTED AROUND 0405, FLUIDS STOPPED AND WILL CONTINUE TO ASSESS PT CONDITION PER PHYSICIAN GUIDELINES.
--- NOTE | 2025-04-07 06:29 | NUR ---
WEB DEVELOPER SUMMARY PT A&OX4, VSS, EXCEPT ELEVATED BP. HYDRALAZINE ADMIN X 2 WITH MODERATE EFFECT. PT HAS BEEN PLEASANT AND COOPERATIVE W/ CARE. UP W/ 1PA TO BSC. R KNEE REMAINS LIMITED IN ROM D/T BRUISING/EDEMA ON KNEE FROM FALL. PT HAS BEEN ASLEEP ON AND OFF THIS SHIFT. WEARS HOME CPAP W/ 3L BLED IN. O2 SATS W/ CPAP >=90%. PT REMAINS ON TELE. V PACED AT 68. FURTHER DETAILS ABOUT PACEMAKER UNKNOWN. PT STATED SHE WOULD HAVE SOMEONE BRING IN MORE INFORMATION DURING THE DAY SHIFT. PT DID C/O SOB THIS MORNING W/ NEW ONSET RUL CRACKLES AUSCULTATED. PROVIDER CONTACTED. PER ORDERS, FLUIDS STOPPED. PT VOICED MAJOR IMPROVEMENT IN BREATHING AND CONDITION. BED RAILS UP X2, BED WHEELS LOCKED, BED IN LOWEST POSITION, PERSONAL BELONGINGS AND CALL LIGHT WITHIN REACH FOR SAFETY.
[2025-04-07 06:32] LABS: BASOPHILS ABSOLUTE AUTO 0.02 K/mm3 (0.00-0.23); BASOPHILS PERCENT AUTO 0 % (0-2); EOSINOPHILS ABSOLUTE AUTO 0.05 K/mm3 (0.00-0.68); EOSINOPHILS PERCENT AUTO 1 % (0-6); Hematocrit 25.7 % (33.0-51.0); Hemoglobin 8.5 g/dL (11.5-16.0); IMMATURE GRAN ABSOLUTE AUTO 0.13 K/mm3 (0.00-0.10); IMMATURE GRAN PERCENT AUTO 1 % (0-1); LYMPHOCYTES ABSOLUTE AUTO 0.74 K/mm3 (0.84-5.20); LYMPHOCYTES PERCENT AUTO 7 % (21-46); MONOCYTES ABSOLUTE AUTO 0.48 K/mm3 (0.16-1.47); MONOCYTES PERCENT AUTO 4 % (4-13); Mean Corpuscular HGB Conc 33.1 g/dL (31.5-36.5); Mean Corpuscular Volume 97 fL (80-100); NEUTROPHILS ABSOLUTE AUTO 9.50 K/mm3 (1.96-9.15); NEUTROPHILS PERCENT AUTO 87 % (41-73); NRBC ABSOLUTE 0.25 K/mm3 (0.00-0.02); NRBC Auto 2.3 /100 WBC (0.0-0.2); Platelet Count 215 K/mm3 (150-400); RDW Coefficient Variation 14.6 % (11.7-14.2); RDW Standard Deviation 50.5 fL (35.1-46.3)
[2025-04-07 06:46] LABS: Prothrombin Time Results 13.5 Sec (9.7-11.5)
[2025-04-07 06:54] LABS: Anion Gap 12.0 mmol/L (3-11); Blood Urea Nitrogen 35.0 mg/dL (8-24); CO2, Blood 18.0 mmol/L (21-32); Calcium, Blood 8.8 mg/dL (8.5-10.1); Chloride, Blood 118.0 mmol/L (98-108); Creatinine, Blood 1.02 mg/dL (0.40-1.00); Glucose, Blood 136.0 mg/dL (70-99); Potassium, Blood 4.0 mmol/L (3.5-5.5); Sodium, Blood 144.0 mmol/L (136-145)
[2025-04-07 07:29] VITALS: BP 149/71
[2025-04-07 11:29] VITALS: BP 150/69
--- NOTE | 2025-04-07 15:17 | NUR ---
SUMMARY PATINET STARTED SHIFT ON 1L NC. WEANED TO ROOM AIR, CONTINUOUS PULSE OX IN PLACE. PATIENT UP IN SHOWER TODAY. A/OX4. HX DEMENTIA BUT NO CONFUSION NOTED WHEN ROUNDING. PT ABLE TO MAKE NEEDS KNOWN. UP 1 ASSIST WITH FWW/GB. CONTINUOUS IV FLUIDS WERE DC'D BY DOC. NO PRN'S THIS SHIFT SO FAR.
[2025-04-07 15:41] VITALS: BP 158/70
[2025-04-07 19:20] VITALS: BP 145/63
[2025-04-07] MEDS ORDERED: Fluticasone 0.05% Nasal Spray SCH (21:00)
[2025-04-07 23:31] VITALS: BP 165/81
[2025-04-08 03:37] VITALS: BP 164/77
--- NOTE | 2025-04-08 04:55 | NUR ---
SUMMARY: PT A/OX4, CALLS APPROPRIATELY TO SPECIFY NEEDS AND IS PLEASANT AND COOPERATIVE W/CARE. SHE HAS A SLIGHTLY UNSTEADY GAIT AND IS SBA TO BSC W/FWW AND GB BUT GRADUALLY REPOSITIONS SELF IN BED. LS REMAINS COARSE TO BILAT BASES W/DEEP BREATHING AND COUGHING ENCOURAGED TO LOOSEN CONGESTION. PT REMAINS ON RA W/SPO2 WNL ON CONT BIOX WHEN AWAKE BUT HAD TROUBLE TOLERATING HER HOME CPAP TONIGHT. SHE'S V-PACED ON TELE AT 60'S-70'S BPM. SBP>160 THIS AM AND PLAN TO GIVE PRN HYDRALAZINE PER EMAR, WILL ASSESS EFFECT. NO ACUTE CHANGES, VSS AND AFEBRILE. WILL REPORT TO DAY RN.
[2025-04-08 05:42] LABS: BASOPHILS ABSOLUTE AUTO 0.02 K/mm3 (0.00-0.23); BASOPHILS PERCENT AUTO 0 % (0-2); EOSINOPHILS ABSOLUTE AUTO 0.33 K/mm3 (0.00-0.68); EOSINOPHILS PERCENT AUTO 3 % (0-6); Hematocrit 26.3 % (33.0-51.0); Hemoglobin 8.6 g/dL (11.5-16.0); IMMATURE GRAN ABSOLUTE AUTO 0.18 K/mm3 (0.00-0.10); IMMATURE GRAN PERCENT AUTO 2 % (0-1); LYMPHOCYTES ABSOLUTE AUTO 0.91 K/mm3 (0.84-5.20); LYMPHOCYTES PERCENT AUTO 9 % (21-46); MONOCYTES ABSOLUTE AUTO 0.51 K/mm3 (0.16-1.47); MONOCYTES PERCENT AUTO 5 % (4-13); Mean Corpuscular HGB Conc 32.7 g/dL (31.5-36.5); Mean Corpuscular Volume 99 fL (80-100); NEUTROPHILS ABSOLUTE AUTO 7.93 K/mm3 (1.96-9.15); NEUTROPHILS PERCENT AUTO 80 % (41-73); NRBC ABSOLUTE 0.28 K/mm3 (0.00-0.02); NRBC Auto 2.8 /100 WBC (0.0-0.2); Platelet Count 227 K/mm3 (150-400); RDW Coefficient Variation 14.6 % (11.7-14.2); RDW Standard Deviation 51.1 fL (35.1-46.3)
[2025-04-08 06:00] LABS: Anion Gap 5.0 mmol/L (3-11); Blood Urea Nitrogen 33.0 mg/dL (8-24); CO2, Blood 23.0 mmol/L (21-32); Calcium, Blood 8.5 mg/dL (8.5-10.1); Chloride, Blood 114.0 mmol/L (98-108); Creatinine, Blood 0.98 mg/dL (0.40-1.00); Glucose, Blood 132.0 mg/dL (70-99); Potassium, Blood 3.7 mmol/L (3.5-5.5); Sodium, Blood 138.0 mmol/L (136-145)
[2025-04-08 07:08] VITALS: BP 158/68
[2025-04-08 11:19] VITALS: BP 163/68
[2025-04-08] MEDS ORDERED: VISBIOME 112.51 EACH PO (11:38)
[2025-04-08] MEDS ORDERED: AMLO5 PO (11:38)
[2025-04-08] MEDS ORDERED: MELA3 PO (11:38)
[2025-04-08] MEDS ORDERED: Acetaminophen650 M1 PO (11:39)
[2025-04-08] MEDS ORDERED: CEPH500 PO (11:39)
--- NOTE | 2025-04-08 13:36 | NUR ---
DISCHARGE FAMILY AT BEDSIDE TO TRANSPORT BELONGINGS. PT TRANSFER TO [facility] VIA W/C [facility]. ATTEMPTED TO CALL REPORT X2. NO ANSWER. IV REMOVEDPRESSURE DRESSING APPLIED. PACKET SENT WITH HEEL EMERY BUFFER. CARE ONGOING.
== END 2025-04-08 13:37 | DRG 682 ==
LOC: ER 08:21 → SURS 12:00 → MEDS 12:00 → SURS 15:02 → MEDS 04-05 19:33
PROVIDERS: Emergency Medicine; Family Medicine; ADMIT Internal Medicine
PROC: 0HQEXZZ Repair Left Lower Arm Skin, External Approach (ICD-10-PCS; principal; 2025-04-02)
PROC: 3E03329 Introduction of Other Anti-infective into Peripheral Vein, Percutaneous Approach (ICD-10-PCS; 2025-04-05)
DX: N17.9 Acute kidney failure, unspecified (principal); J18.9 Pneumonia, unspecified organism; I35.0 Nonrheumatic aortic (valve) stenosis; I48.0 Paroxysmal atrial fibrillation; I49.5 Sick sinus syndrome; R79.1 Abnormal coagulation profile; E03.9 Hypothyroidism, unspecified; Z66 Do not resuscitate; E78.5 Hyperlipidemia, unspecified; F32.A Depression, unspecified; F41.9 Anxiety disorder, unspecified; I10 Essential (primary) hypertension; W19.XXXA Unspecified fall, initial encounter; S80.01XA Contusion of right knee, initial encounter; S50.11XA Contusion of right forearm, initial encounter; G25.3 Myoclonus; E11.9 Type 2 diabetes mellitus without complications; G47.30 Sleep apnea, unspecified; D64.9 Anemia, unspecified; S51.812A Laceration without foreign body of left forearm, initial encounter; Z96.652 Presence of left artificial knee joint; Z95.0 Presence of cardiac pacemaker; Z91.81 History of falling; Z88.1 Allergy status to other antibiotic agents; Z88.0 Allergy status to penicillin; Z88.2 Allergy status to sulfonamides; Z88.8 Allergy status to other drugs, medicaments and biological substances; Z79.01 Long term (current) use of anticoagulants; Z79.890 Hormone replacement therapy; Z87.891 Personal history of nicotine dependence; Z98.84 Bariatric surgery status; Z79.899 Other long term (current) drug therapy; Z79.891 Long term (current) use of opiate analgesic
CPT/HCPCS: 12002; 36415; 70450; 71045; 72170; 73090; 73562-RT; 76770; 80048; 80053; 80076; 81001; 82140; 82570; 82607; 82746; 83605; 83735; 84300; 84439; 84443; 84540; 85025; 85610; 85651; 85730; 87086; 93005; 93010; 94660; 94762; 97110; 97116; 97129; 97161; 97165; 97530; 97535; 99285-25; A9270; J0360; J0696; J1630; J3430; J7030

== ENCOUNTER 2025-06-01 22:22 | Emergency (ER) | payer MEDICARE ==
[~2025-06-01] VITALS: Ht 157.5 cm; Wt 73.9 kg
[~2025-06-01 22:22] MED LIST changes: +AMLO5 PO; +Acetaminophen650 M1 PO; +CEPH500 PO; +IRON18 M1; +MELA3 PO; +METHYL B12-MET1 EACH PO; +MULVITA PO; +PRAV20 PO; +Prinivil10 MG PO; +VISBIOME 112.51 EACH PO
[2025-06-02] MEDS ORDERED: FentaNYL Citrate 50 MCG/ML 2 ML Injection IV ONE (01:25)
[2025-06-02 02:40] VITALS: BP 177/51
[2025-06-02] MEDS ORDERED: Robaxin750 MG PO (02:53)
== END 2025-06-02 02:52 | disposition home or self-care (01) ==
LOC: ER 22:22
DX: M62.011 Separation of muscle (nontraumatic), right shoulder (principal); I48.91 Unspecified atrial fibrillation; I10 Essential (primary) hypertension; E03.9 Hypothyroidism, unspecified; Z87.891 Personal history of nicotine dependence; Z88.1 Allergy status to other antibiotic agents; Z88.0 Allergy status to penicillin; Z88.2 Allergy status to sulfonamides; Z88.8 Allergy status to other drugs, medicaments and biological substances; Z79.01 Long term (current) use of anticoagulants; Z79.890 Hormone replacement therapy; Z79.899 Other long term (current) drug therapy
CPT/HCPCS: 73030; 96374; 99283-25; A9270; J3010

== ENCOUNTER 2025-07-08 06:03 | Day surgery (SDC) | payer MEDICARE ==
[2025-07-08] VITALS (10 sets, daily range): BP systolic 145–177; BP diastolic 64–101
[~2025-07-08] VITALS: Ht 157.5 cm; Wt 66.8 kg
[~2025-07-08 06:03] MED LIST changes: -IRON18 M1; +IRON18 M1 PO; +Robaxin750 MG PO
[2025-07-08] MEDS ORDERED: NS 1,000 ML IV ONE (06:41)
[2025-07-08] MEDS ORDERED: FURO40 PO (08:07)
[2025-07-08] MEDS ORDERED: POTA10T PO (08:09)
--- NOTE | 2025-07-08 08:20 | NUR ---
PATIENT AD[facility]ITTED [facility]CH CARDIOVERSION. PT NPO, DENIES COMPLAINTS OF PAIN. PATIENT HAS BEEN TAKING COUMADIN REGULARLY, LAST DOSE LAST NIGHT. CURRENT LABS REVIEWED, HX REVIEWED. CONSENT SIGNED. INITIALLY PATIENT APPEARED TO BE IN PACED REGULAR RHYTHM AT 60. EKG OBTAINED, DR SONG CONFIRMED PT STILL IN AFIB. TIME OUT CALLED AT 0720. SYNCH CARDIOVERSION AT 200J AT 0726. 239J DELIVERED. PATIENT SUCCESSFULLY COVERTED TO A/V PACED RHYTHM. POST EKG COMPLETED AND SHOWN TO DR SONG. NO CHANGES TO MEDS. PATIENT AWAKE AND ABLE TO ANSWER QUESTIONS APPROPRIATELY AT 0730. DR SONG UPDATED PATIENT AT THIS TIME. PATIENT AWAKE NOW W/ VITAL SIGNS AT BASELINE. 98-100% ON RA. PATIENT DENIES COMPLAINTS.
--- NOTE | 2025-07-08 09:13 | NUR ---
0840-PATIENT AWAKE AND ALERT DRINKING COFFEE. VSS/AT BASELINE. PATIENT DENIES COMPLAINTS. VERBAL AND WRITTEN DISCHAGE INSTRUCTIONS GIVEN TO PATIENT WITH CLEAR UNDERSTANDING. PATIENT ESCORTED OUT VIA WHEELCHAIR AT 0900 AND DELIVERED TO PT'S SON WHOM IS DRIVING HER HOME. PATIENT DC'D HOME IN STABLE CONDITION AT 0900.
[2025-07-08] MEDS ORDERED: Lidocaine HCl 2% 20 MG/ML 5ML SYR IV ONE (16:23)
[2025-07-08] MEDS ORDERED: Propofol 10mg/ml 20 ml Vial (Procedural) IV ONE (16:23)
== END 2025-07-08 23:00 | disposition home or self-care (01) ==
LOC: ORSCMMR 06:03 → MHTC 06:03 → ORSCMMR 06:29 → ORD 07:00 → ORSCMMR 23:00 → MHTC 23:00
DX: I48.0 Paroxysmal atrial fibrillation (principal); I35.0 Nonrheumatic aortic (valve) stenosis; I11.0 Hypertensive heart disease with heart failure; I50.30 Unspecified diastolic (congestive) heart failure; Z95.0 Presence of cardiac pacemaker; Z79.01 Long term (current) use of anticoagulants; Z79.899 Other long term (current) drug therapy; Z88.0 Allergy status to penicillin; Z88.1 Allergy status to other antibiotic agents; Z88.2 Allergy status to sulfonamides; Z88.4 Allergy status to anesthetic agent; Z88.8 Allergy status to other drugs, medicaments and biological substances
CPT/HCPCS: 92960; 93005; 93010; J2003; J2704; J7030